=== PATIENT | female | born 1940 | race Caucasian/White ===

== ENCOUNTER 2016-08-08 10:04 | Inpatient (IN) | payer BC ==
[2016-08-08 10:12] VITALS: BMI 31.8
[2016-08-08] MEDS ORDERED: dilTIAZem HCL 50 MG/10 ML - 10 ML VIAL IVPUSH ONE (10:33)
--- NOTE | 2016-08-08 10:44 | PDOC ---
History of Present Illness - History of Present Illness Initial Comments: 08/08/16 10:47 - History of Present Illness Initial Comments: 08/08/16 10:44 Patient is 75 year old female with a significant past medical history of hypertension, hypothyroidism and hyperlipidemia who presents to the Emergency Department sent by PCP for new onset afib. Patient states that she was at her PMDs office for a routine visit she was found to have an abnormal ECG with irregular heartbeat. Patient reports dyspnea on exertion walking up 13 stairs at her home and increased generalized weakness. She denies any palpitations or chest pain. She denies any leg swelling. Patient states that she saw Dr. Nicole 4 months ago and had normal cardiac workup. PCP - Dr. Rivas Cardiology - Dr. Nicole <Esme Perez - Last Filed: 08/08/16 10:44> <Luz Elena Alvarez - Last Filed: 08/08/16 12:37> <Esme Perez - Last Filed: 08/08/16 15:05> - General Chief Complaint: Irregular Heart Beat Stated Complaint: PCP SENT Time Seen by Provider: 08/08/16 10:17 Past History - Past Medical History Cardiac Disorders: Yes (HEART MURMUR) HTN: Yes Hypercholesterolemia: Yes Thyroid Disease: Yes - Psycho/Social/Smoking Cessation Hx Anxiety: No Suicidal Ideation: No Smoking History: Never smoked Have you smoked in the past 12 months: No Information on smoking cessation initiated: No Hx Alcohol Use: No Drug/Substance Use Hx: No Substance Use Type: Alcohol <Luz Elena Alvarez - Last Filed: 08/08/16 12:37> <Esme Perez - Last Filed: 08/08/16 15:05> - Past Medical History Allergies/Adverse Reactions: Allergies Allergy/AdvReac Type Severity Reaction Status Date / Time No Known Allergies Allergy Verified 08/08/16 10:09 Home Medications: Ambulatory Orders Levothyroxine [Synthroid -] 50 mcg PO DAILY 03/28/13 Losartan/Hydrochlorothiazide [Losartan-Hctz 100-12.5 mg Tab] 1 each PO DAILY Simvastatin [Zocor] 20 mg PO HS 03/28/13 Verapamil HCl [Calan Sr] 140 mg PO DAILY 03/28/13 Aspirin [Ecotrin] 81 mg PO DAILY 08/08/16 Review of Systems - Review of Systems Able to Perform ROS?: Yes Comments:: 08/08/16 10:40 12 point review of systems is as per history of present illness and otherwise negative <Luz Elena Alvarez - Last Filed: 08/08/16 12:37> *Physical Exam - Vital Signs Last Vital Signs Temp Pulse Resp BP Pulse Ox 97.6 F 128 H 20 156/96 97 08/08/16 10:09 08/08/16 10:09 08/08/16 10:08/08/16 10:08/08/16 10:09 - Physical Exam Comments: 08/08/16 10:40 Physical exam Last Vital Signs Temp Pulse Resp BP Pulse Ox 97.6 F 128 H 20 156/96 97 08/08/16 10:09 08/08/16 10:09 08/08/16 10:08/08/16 10:09 08/08/16 10:09 GENERAL: The patient is awake, alert, and fully oriented, and in no apparent distress. HEAD: Normal with no signs of trauma. EYES: sclera anicteric, conjunctiva are normal. ENT: Moist mucous membranes. NECK: Normal range of motion, supple LUNGS: Breath sounds equal, clear to auscultation bilaterally. No wheezes, and no crackles. HEART: Irregularly irregular with a rate of 120 to 130 ABDOMEN: Soft, nontender, normoactive bowel sounds. No guarding, no rebound. No masses appreciated. EXTREMITIES: Normal range of motion, no edema. No clubbing or cyanosis. No cords, erythema, or tenderness. NEUROLOGICAL: Cranial nerves II through XII grossly intact. Normal speech, normal gait. PSYCH: Normal mood, normal affect. SKIN: Warm, Dry, normal turgor, no rashes or lesions noted. <Luz Elena Alvarez - Last Filed: 08/08/16 12:37> - Vital Signs Last Vital Signs Temp Pulse Resp BP Pulse Ox 97.6 F 128 H 20 156/96 97 08/08/16 10:09 08/08/16 10:09 08/08/16 10:08/08/16 10:08/08/16 10:09 <Esme Perez - Last Filed: 08/08/16 15:05> ED Treatment Course - LABORATORY CBC & Chemistry Diagram: 08/08/16 11:00 08/08/16 11:00 - RADIOLOGY Radiology Studies Ordered: Category Date Time Status CHEST X-RAY PORTABLE* [RAD] Stat Radiology 08/08/16 10:32 Ordered <Luz Elena Alvarez - Last Filed: 08/08/16 12:37> - LABORATORY CBC & Chemistry Diagram: 08/08/16 11:00 08/08/16 11:00 <Esme Perez - Last Filed: 08/08/16 15:05> Medical Decision Making - Medical Decision Making 08/08/16 10:42 EKG Atrial fibrillation with a rapid ventricular response rate-123 Left axis deviation -41 QRS duration 106 QTC [address]-T waves that may be rate related When compared to the EKG of 12/25/07 Sinus rhythm was present on the prior EKG An EKG from Dr. Rivas's office from this morning She has atrial fibrillation with a ventricular response rate of 100 75-year-old female with atrial fibrillation of uncertain etiology, as she has been essentially asymptomatic with this She went to Dr. Rivas's office today for a regular physical and was found to be in atrial fibrillation She's had no chest pain or palpitations She does state that she has had some dyspnea on exertion going up the steps, but denies any other symptomatology It is unclear how long she's been in atrial fibrillation She was last seen by her manager behavioral for months ago, and at that time she was in sinus rhythm 08/08/16 12:13 EKG #2 Atrial fibrillation with a rapid ventricular response rate now of [address]-T wave abnormalities, similar to the prior EKG Impression his heart rate is now 96 on the diltiazem drip 08/08/16 12:27 Chest x-ray Right basilar platelike atelectasis, otherwise negative No evidence of pneumonia, CHF, pleural effusion, or pneumothorax Laboratory Results - last 24 hr 08/08/16 08/08/16 11:00 11:00 WBC 11.3 H D RBC 5.02 Hgb 13.6 Hct 41.7 MCV 83.1 MCHC 32.5 RDW 15.8 H Plt Count 267 MPV 8.2 Sodium 141 Potassium 3.9 Chloride 103 Carbon Dioxide 27 Anion Gap 11 BUN 10 Creatinine 0.7 Creat Clearance w eGFR > 60 Random Glucose 116 H D Calcium 8.5 Magnesium 1.7 L Total Bilirubin 0.5 D AST 20 ALT 20 Alkaline Phosphatase 103 Creatine Kinase 75 Troponin I < 0.02 B-Natriuretic Peptide 1587.44 H Total Protein 6.8 Albumin 3.5 Patient comfortable on diltiazem drip-heart rate down into the 90s 08/08/16 12:37 Case and all results discussed with Dr. John-will admit Cardiology paged <Luz Elena Alvarez - Last Filed: 08/08/16 12:37> - Medical Decision Making 08/08/16 15:05 A call back was received from Dr. Nicole and case discussed. Dr. Nicole will be consult on the case. <Esme Perez - Last Filed: 08/08/16 15:05> *DC/Admit/Observation/Transfer - Discharge Dispostion Admit: Yes <Luz Elena Alvarez - Last Filed: 08/08/16 12:37> <Esme Perez - Last Filed: 08/08/16 15:05> Diagnosis at time of Disposition: Atrial fibrillation with rapid ventricular response
[2016-08-08] MEDS ORDERED: DILTIAZEM INJECTION 125 MG in DEXTROSE 5%-WATER - 100 ML IVPB SCH (10:45)
[2016-08-08] MEDS ORDERED: dilTIAZem HCL 125 MG/25 ML - 25 ML VIAL ONE (10:47)
[2016-08-08] MEDS ORDERED: dilTIAZem HCL 50 MG/10 ML - 10 ML VIAL ONE (10:48)
[2016-08-08 11:20] LABS: MCHC 32.5 g/dl (32.0-36.0); MEAN CELL VOLUME 83.1 fl (80-96); MEAN PLT VOLUME 8.2 fl (7.5-11.1); PLATELET COUNT 267 K/MM3 (134-434); RDW 15.8 % (11.6-15.6); WHITE BLOOD COUNT 11.3 K/mm3 (4.0-10.0)
[2016-08-08 11:42] LABS: ALBUMIN 3.5 g/dl (3.4-5.0); ANION GAP 11 (8-16); BILIRUBIN,TOTAL 0.5 mg/dL (0.2-1.0); CALCIUM 8.5 mg/dL (8.5-10.1); CO2 27 mmol/L (21-32); COCKROFT - GAULT 88.1195; CREATININE 0.7 mg/dL (0.55-1.02); GLUCOSE,RANDOM 116 mg/dL (74-106); MAGNESIUM 1.7 mg/dL (1.8-2.4); SGOT/AST 20 U/L (15-37); SGPT/ALT 20 U/L (12-78); TOT PROT 6.8 g/dl (6.4-8.2)
[2016-08-08 11:44] LABS: ALK PHOS 103 U/L (45-117); TROPONIN I < 0.02 ng/ml (0.00-0.05)
--- NOTE | 2016-08-08 13:07 | CON.CARD ---
Consult Consult Specialty:: Palpitations Referred by:: Red Rivas MD Reason for Consultation:: Newly diagnosed atrial fibrillation - History of Present Illness Chief Complaint: Palpitations History of Present Illness: Patient is 75 year old female with a significant past medical history of hypertension, hypothyroidism, hyperlipidemia, nonobstructive CAD referred to the Emergency Department by PCP for newly diagnosed rapid afib. Patient states that she was at her PMDs office for a routine visit she was found to be in rapid afib. Patient reports dyspnea on exertion walking up 13 stairs at her home and increased generalized weakness, but denies any palpitations, chest pain , near or true syncope, orthopnea, PND, or lower extremity edema, placed on cardizem gtt for rate-control with spontaneous cardioversion with rate-control, she reports medication compliance. PCP - Dr. Rivas Cardiology - Dr. Nicole - History Source History Provided By: Patient Limitations to Obtaining History: No Limitations - Alcohol/Substance Use Hx Alcohol Use: No - Smoking History Smoking history: Never smoked Have you smoked in the past 12 months: No Home Medications - Allergies Allergies/Adverse Reactions: Allergies Allergy/AdvReac Type Severity Reaction Status Date / Time No Known Allergies Allergy Verified 08/08/16 10:09 - Home Medications Home Medications: Ambulatory Orders Levothyroxine [Synthroid -] 50 mcg PO DAILY 03/28/13 Losartan/Hydrochlorothiazide [Losartan-Hctz 100-12.5 mg Tab] 1 each PO DAILY Simvastatin [Zocor] 20 mg PO HS 03/28/13 Verapamil HCl [Calan Sr] 140 mg PO DAILY 03/28/13 Aspirin [Ecotrin] 81 mg PO DAILY 08/08/16 Review of Systems - Review of Systems Respiratory: reports: Exercise Intolerance, SOB on Exertion Vital Signs: Vital Signs Temperature 97.6 F 08/08/16 10:09 Pulse Rate 105 H 08/08/16 11:25 Respiratory Rate 16 08/08/16 11:25 Blood Pressure 126/71 08/08/16 11:25 O2 Sat by Pulse Oximetry (%) 98 08/08/16 11:25 Constitutional: Yes: No Distress, Calm Neck: Yes: Supple Respiratory: Yes: Regular, Diminished Gastrointestinal: Yes: Normal Bowel Sounds, Soft Cardiovascular: Yes: Regular Rate and Rhythm JVD: No Carotid Bruit: No Heart Sounds: Yes: S1, S2 Murmur: Yes: Systolic Murmur, Grade 1 Edema: No - Other Data Labs, Other Data: CBC, BMP 08/08/16 11:00 08/08/16 11:00 Troponin, BNP 08/08/16 11:00 Troponin I < 0.02 B-Natriuretic Peptide 1587.44 H Troponin, BNP 08/08/16 11:00 Troponin I < 0.02 B-Natriuretic Peptide 1587.44 H Afib @ 123 LAD, LVH QTc 460 msec Ejection Fraction %: LVEF > or = 40 % Imaging - Results Chest X-ray: Report Reviewed (Rt base ATX, otherwise NAD) Problem List - Problems (1) Atrial fibrillation with rapid ventricular response Code(s): I48.91 - UNSPECIFIED ATRIAL FIBRILLATION (2) Hypertensive cardiomyopathy Code(s): I11.9 - HYPERTENSIVE HEART DISEASE WITHOUT HEART FAILURE I42.9 - CARDIOMYOPATHY, UNSPECIFIED Qualifiers: Heart failure presence: without heart failure Qualified Code(s): I11.9 - Hypertensive heart disease without heart failure (3) Hyperlipidemia Code(s): E78.5 - HYPERLIPIDEMIA, UNSPECIFIED Qualifiers: Hyperlipidemia type: pure hypercholesterolemia Qualified Code(s): E78.00 - Pure hypercholesterolemia, unspecified; E78.0 - Pure hypercholesterolemia (4) Hypothyroidism Code(s): E03.9 - HYPOTHYROIDISM, UNSPECIFIED Qualifiers: Hypothyroidism type: unspecified Qualified Code(s): E03.9 - Hypothyroidism, unspecified (5) Coronary artery disease Code(s): I25.10 - ATHSCL HEART DISEASE OF [place] CORONARY ARTERY W/O ANG PCTRS Assessment/Plan 1. Paroxysmal atrial fibrillation-> sinue rhythm [id number] 2. HTN/HCVD 3. Hyperlipidemia 4. Hypothyroidism 5. Non-obstructive CAD, angina pectoris P:1. Wean Cardizem gtt off, start sotalol 80 bid with monitor QTc x 2 days 2. Check TSH, echocardiogram if not performed recently 3. Continue Hyzaar 100/12.5 qd, Zocor 20 qhs, change ASA to Eliquis 5 bid given elevated risk score 4. Thank you for consultative opportunity
--- NOTE | 2016-08-08 13:23 | EKG ---
Test Reason : Blood Pressure : / mmHG Vent. Rate : 123 BPM Atrial Rate : 122 BPM P-R Int : 000 ms QRS Dur : 106 ms QT Int : 322 ms P-R-T Axes : 000 -41 099 degrees QTc Int : 460 ms ATRIAL FIBRILLATION WITH RAPID VENTRICULAR RESPONSE LEFT AXIS DEVIATION VOLTAGE CRITERIA FOR LEFT VENTRICULAR HYPERTROPHY NONSPECIFIC ST AND T WAVE ABNORMALITY ABNORMAL ECG WHEN COMPARED WITH ECG OF 25-DEC-2007 17:47, ATRIAL FIBRILLATION HAS REPLACED SINUS RHYTHM VENT. RATE HAS INCREASED BY 75 BPM QRS DURATION HAS INCREASED Confirmed by MARY KOHLI MD ([id number]) on 08/08/2016 1:23:41 PM Referred By: Confirmed By:MARY KOHLI MD
[2016-08-08] MEDS ORDERED: ONDANSETRON 4 MG/2 ML VIAL IVPB PRN (14:01)
[2016-08-08] MEDS ORDERED: ACETAMINOPHEN 325 MG TABLET (FP) PO PRN (14:01)
--- NOTE | 2016-08-08 14:04 | HP ---
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 Sister Caroline says she feels fine and was without complaint. She says that sometimes she gets slight shortness of breath on exertion but it is minimal. She presented to Dr Rivas and was found to have atrial fibrillation. She is asymptomatic from this. She denies fevers, chills, lightheadedness, dizziness, passing out, chest pain, palpitations, fluttering, nausea, vomiting, diarrhea, constipation, difficulty urinating, swelling, or any other concern. History Source: Patient Limitations to Obtaining History: No Limitations - Past Medical History Cardiovascular: Yes: HTN, Hyperlipdemia Endocrine: Yes: Hypothyroidism - Past Surgical History Past Surgical History: Yes: None - Smoking History Smoking history: Never smoked Have you smoked in the past 12 months: No - Alcohol/Substance Use Hx Alcohol Use: Yes History of Substance Use: reports: None - Social History Usual Living Arrangement: Yes: Alone ADL: Independent History of Recent Travel: No Home Medications - Allergies Allergies/Adverse Reactions: Allergies Allergy/AdvReac Type Severity Reaction Status Date / Time No Known Allergies Allergy Verified 08/08/16 10:09 - Home Medications Home Medications: Ambulatory Orders Levothyroxine [Synthroid -] 50 mcg PO DAILY 03/28/13 Losartan/Hydrochlorothiazide [Losartan-Hctz 100-12.5 mg Tab] 1 each PO DAILY Simvastatin [Zocor] 20 mg PO HS 03/28/13 Verapamil HCl [Calan Sr] 140 mg PO DAILY 03/28/13 Aspirin [Ecotrin] 81 mg PO DAILY 08/08/16 Family Disease History - Family Disease History Family Disease History: Diabetes: Mother, Heart Disease: Father, Brother Review of Systems Findings/Remarks: Full review of systems obtained, as per HPI and otherwise negative Physical Examination Vital Signs: Vital Signs Temperature 97.6 F 08/08/16 10:09 Pulse Rate 82 08/08/16 13:16 Respiratory Rate 16 08/08/16 13:16 Blood Pressure 93/63 08/08/16 13:16 O2 Sat by Pulse Oximetry (%) 96 08/08/16 13:16 Constitutional: Yes: Well Nourished, No Distress, Calm Eyes: Yes: Conjunctiva Clear, EOM Intact, PERRL HENT: Yes: Atraumatic, Normocephalic Neck: Yes: Supple, Trachea Midline Cardiovascular: Yes: Pulse Irregular, Murmur. No: Tachycardia, Gallop, Rub Respiratory: Yes: Regular, CTA Bilaterally. No: Rales, Rhonchi, Wheezes Gastrointestinal: Yes: Normal Bowel Sounds, Soft. No: Distention, Tenderness Extremities: Yes: WNL Edema: No Labs: Laboratory Results - last 24 hr 08/08/16 08/08/16 11:00 11:00 WBC 11.3 H D RBC 5.02 Hgb 13.6 Hct 41.7 MCV 83.1 MCHC 32.5 RDW 15.8 H Plt Count 267 MPV 8.2 Sodium 141 Potassium 3.9 Chloride 103 Carbon Dioxide 27 Anion Gap 11 BUN 10 Creatinine 0.7 Creat Clearance w eGFR > 60 Random Glucose 116 H D Calcium 8.5 Magnesium 1.7 L Total Bilirubin 0.5 D AST 20 ALT 20 Alkaline Phosphatase 103 Creatine Kinase 75 Troponin I < 0.02 B-Natriuretic Peptide 1587.44 H Total Protein 6.8 Albumin 3.5 Imaging - Results Chest X-ray: Report Reviewed, Image Reviewed EKG: Image Reviewed Problem List - Problems (1) Atrial fibrillation with rapid ventricular response Assessment/Plan: -new onset -admit to telemetry -continue diltiazem gtt -start on eliquis -cardiology consulted -check TFTs Code(s): I48.91 - UNSPECIFIED ATRIAL FIBRILLATION (2) Hyperlipidemia Assessment/Plan: -continue statin Code(s): E78.5 - HYPERLIPIDEMIA, UNSPECIFIED Qualifiers: Hyperlipidemia type: pure hypercholesterolemia Qualified Code(s): E78.00 - Pure hypercholesterolemia, unspecified; E78.0 - Pure hypercholesterolemia (3) Hypothyroidism Assessment/Plan: -continue synthroid currently -check TFTs Code(s): E03.9 - HYPOTHYROIDISM, UNSPECIFIED Qualifiers: Hypothyroidism type: unspecified Qualified Code(s): E03.9 - Hypothyroidism, unspecified (4) HTN (hypertension) Assessment/Plan: -on diltiazem gtt, will hold verapamil -continue losartan/HCT Code(s): I10 - ESSENTIAL (PRIMARY) HYPERTENSION
[2016-08-08] MEDS: SOTALOL HCL 80 MG TABLET (FP) PO SCH (16:00)
[2016-08-08] MEDS ORDERED: MAGNESIUM SULF 50% (8.12 MEQ/2 ML-1 GM VIAL) IVPB ONE (16:39)
[2016-08-08 18:52] LABS: FREE T4 1.16 ng/dl (0.76-1.46); THYROID STIMULATING HORMONE 0.95 uIU/ml (0.358-3.74)
[2016-08-08] MEDS: ATORVASTATIN CA 10 MG TABLET (FP) PO SCH (21:12)
[2016-08-08] MEDS: APIXABAN 5 MG TABLET PO SCH (21:12)
[2016-08-09] MEDS: SOTALOL HCL 80 MG TABLET (FP) PO SCH ×3 (01:14→21:14)
[2016-08-09] MEDS: LEVOTHYROXINE NA 50 MCG TABLET (FP) PO SCH (06:34)
[2016-08-09 08:49] LABS: MCH 27.4 pg (25.7-33.7); MCHC 32.8 g/dl (32.0-36.0); MEAN CELL VOLUME 83.5 fl (80-96); PLATELET COUNT 275 K/MM3 (134-434); RDW 16.6 % (11.6-15.6); WHITE BLOOD COUNT 8.5 K/mm3 (4.0-10.0)
[2016-08-09 09:20] LABS: ALBUMIN 3.4 g/dl (3.4-5.0); ALK PHOS 96 U/L (45-117); ANION GAP 8 (8-16); BILIRUBIN,TOTAL 0.6 mg/dL (0.2-1.0); CALCIUM 8.3 mg/dL (8.5-10.1); CO2 30 mmol/L (21-32); COCKROFT - GAULT 77.1035; CREATININE 0.8 mg/dL (0.55-1.02); GLUCOSE,RANDOM 103 mg/dL (74-106); MAGNESIUM 2.2 mg/dL (1.8-2.4); PHOSPHOROUS 2.7 mg/dL (2.5-4.9); SGOT/AST 14 U/L (15-37); SGPT/ALT 21 U/L (12-78); TOT PROT 6.6 g/dl (6.4-8.2)
--- NOTE | 2016-08-09 09:57 | PN ---
Progress Note (short form) - Note Progress Note: Dr. John to document today.
[2016-08-09] MEDS ORDERED: PATIENT'S OWN MEDICATION (NON-FORMULARY) (Losartan/Hydrochlorothiazide [Losartan-Hctz 100- PO SCH (10:00)
[2016-08-09] MEDS: APIXABAN 5 MG TABLET PO SCH ×2 (10:13→21:14)
[2016-08-09] MEDS: HYDROCHLOROTHIAZIDE 12.5 MG CAPSULE (FP) PO SCH (10:13)
[2016-08-09] MEDS: LOSARTAN POTASSIUM 50 MG TABLET (FP) PO SCH (10:13)
--- NOTE | 2016-08-09 11:15 | EKG ---
Test Reason : Blood Pressure : / mmHG Vent. Rate : 062 BPM Atrial Rate : 062 BPM P-R Int : 178 ms QRS Dur : 112 ms QT Int : 478 ms P-R-T Axes : 047 -34 109 degrees QTc Int : 485 ms NORMAL SINUS RHYTHM LEFT AXIS DEVIATION LEFT VENTRICULAR HYPERTROPHY WITH REPOLARIZATION ABNORMALITY CANNOT RULE OUT SEPTAL INFARCT , AGE UNDETERMINED ABNORMAL ECG WHEN COMPARED WITH ECG OF 08-AUG-2016 11:24, SINUS RHYTHM HAS REPLACED ATRIAL FIBRILLATION VENT. RATE HAS DECREASED BY 45 BPM Confirmed by ALEXANDRIA ANTUNEZ MD ([id number]) on 08/09/2016 11:14:53 AM Referred By: JON ROLON Confirmed By:ALEXANDRIA ANTUNEZ MD
--- NOTE | 2016-08-09 13:38 | PN ---
Progress Note, Physician History of Present Illness: Dyspnea on exertion improved, denies palpitations. Tele shows maintenance of SR without PAF episodes. - Current Medication List Current Medications: Active Medications Acetaminophen (Tylenol -) 650 mg PO Q4H PRN PRN Reason: FEVER OR PAIN Apixaban (Eliquis -) 5 mg PO BID [facility] Last Admin: 08/09/16 10:13 Dose: 5 mg Atorvastatin Calcium (Lipitor -) 10 mg PO HS [facility] Last Admin: 08/08/16 21:12 Dose: 10 mg Hydrochlorothiazide (Hctz -) 12.5 mg PO DAILY [facility] Last Admin: 08/09/16 10:13 Dose: 12.5 mg Levothyroxine Sodium (Synthroid -) 50 mcg PO DAILY@0700 [facility] Last Admin: 08/09/16 06:34 Dose: 50 mcg Losartan Potassium (Cozaar -) 100 mg PO DAILY [facility] Last Admin: 08/09/16 10:13 Dose: 100 mg Ondansetron HCl (Zofran Injection) 4 mg IVPB Q6H PRN PRN Reason: NAUSEA Sotalol HCl (Betapace -) 80 mg PO BID [facility] Last Admin: 08/09/16 10:13 Dose: 80 mg - Objective Vital Signs: Vital Signs Temperature 98.3 F 08/09/16 10:00 Pulse Rate 61 08/09/16 10:00 Respiratory Rate 20 08/09/16 10:00 Blood Pressure 133/55 08/09/16 10:00 O2 Sat by Pulse Oximetry (%) 96 08/09/16 09:00 Constitutional: Yes: No Distress, Calm Neck: Yes: Supple Cardiovascular: Yes: Regular Rate and Rhythm Respiratory: Yes: Regular, CTA Bilaterally Gastrointestinal: Yes: Normal Bowel Sounds, Soft Edema: No Labs: CBC, BMP 08/09/16 08:40 08/09/16 08:40 - ....Imaging EKG: Report Reviewed (NSR @ 62 LVH, LAD QTc 485 msec) Problem List - Problems (1) Atrial fibrillation with rapid ventricular response Code(s): I48.91 - UNSPECIFIED ATRIAL FIBRILLATION (2) Hypertensive cardiomyopathy Code(s): I11.9 - HYPERTENSIVE HEART DISEASE WITHOUT HEART FAILURE I42.9 - CARDIOMYOPATHY, UNSPECIFIED Qualifiers: Heart failure presence: without heart failure Qualified Code(s): I11.9 - Hypertensive heart disease without heart failure (3) Hyperlipidemia Code(s): E78.5 - HYPERLIPIDEMIA, UNSPECIFIED Qualifiers: Hyperlipidemia type: pure hypercholesterolemia Qualified Code(s): E78.00 - Pure hypercholesterolemia, unspecified; E78.0 - Pure hypercholesterolemia (4) Hypothyroidism Code(s): E03.9 - HYPOTHYROIDISM, UNSPECIFIED Qualifiers: Hypothyroidism type: unspecified Qualified Code(s): E03.9 - Hypothyroidism, unspecified (5) Coronary artery disease Code(s): I25.10 - ATHSCL HEART DISEASE OF [place] CORONARY ARTERY W/O ANG PCTRS Assessment/Plan 08/08/2016 Normal biventricular size and fxn, tr AR 1. Paroxysmal atrial fibrillation-> sinus rhythm [id number] 2. HTN/HCVD 3. Hyperlipidemia 4. Hypothyroidism 5. Non-obstructive CAD, angina pectoris P:1. Continue sotalol 80 bid with monitor QTc x 1 more day 2. Continue Hyzaar 100/12.5 qd, Lipitor 10 qhs, and Eliquis 5 bid given elevated risk score 3. D/c planning in AM
--- NOTE | 2016-08-09 14:52 | PN ---
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 No cp, sob, n/v. - Current Medication List Current Medications: Active Medications Acetaminophen (Tylenol -) 650 mg PO Q4H PRN PRN Reason: FEVER OR PAIN Apixaban (Eliquis -) 5 mg PO BID [facility] Last Admin: 08/09/16 10:13 Dose: 5 mg Atorvastatin Calcium (Lipitor -) 10 mg PO HS [facility] Last Admin: 08/08/16 21:12 Dose: 10 mg Hydrochlorothiazide (Hctz -) 12.5 mg PO DAILY [facility] Last Admin: 08/09/16 10:13 Dose: 12.5 mg Levothyroxine Sodium (Synthroid -) 50 mcg PO DAILY@0700 [facility] Last Admin: 08/09/16 06:34 Dose: 50 mcg Losartan Potassium (Cozaar -) 100 mg PO DAILY [facility] Last Admin: 08/09/16 10:13 Dose: 100 mg Ondansetron HCl (Zofran Injection) 4 mg IVPB Q6H PRN PRN Reason: NAUSEA Sotalol HCl (Betapace -) 80 mg PO BID [facility] Last Admin: 08/09/16 10:13 Dose: 80 mg - Objective Vital Signs: Vital Signs Temperature 98.2 F 08/09/16 14:00 Pulse Rate 57 L 08/09/16 14:00 Respiratory Rate 20 08/09/16 14:00 Blood Pressure 140/64 08/09/16 14:00 O2 Sat by Pulse Oximetry (%) 96 08/09/16 09:00 Constitutional: Yes: Well Nourished, No Distress, Calm Cardiovascular: Yes: Regular Rate and Rhythm. No: Gallop, Murmur, Rub Respiratory: Yes: Regular, CTA Bilaterally. No: Rales, Rhonchi, Wheezes Gastrointestinal: Yes: Normal Bowel Sounds, Soft. No: Distention, Tenderness Extremities: Yes: WNL Edema: No Labs: CBC, BMP 08/09/16 08:40 08/09/16 08:40 Problem List - Problems (1) Atrial fibrillation with rapid ventricular response Code(s): I48.91 - UNSPECIFIED ATRIAL FIBRILLATION (2) Hyperlipidemia Code(s): E78.5 - HYPERLIPIDEMIA, UNSPECIFIED Qualifiers: Hyperlipidemia type: pure hypercholesterolemia Qualified Code(s): E78.00 - Pure hypercholesterolemia, unspecified; E78.0 - Pure hypercholesterolemia (3) Hypothyroidism Code(s): E03.9 - HYPOTHYROIDISM, UNSPECIFIED Qualifiers: Hypothyroidism type: unspecified Qualified Code(s): E03.9 - Hypothyroidism, unspecified (4) HTN (hypertension) Code(s): I10 - ESSENTIAL (PRIMARY) HYPERTENSION Assessment/Plan (1) Atrial fibrillation with rapid ventricular response Assessment/Plan: -appreciate cardiology assistance -rhythm controlled -now in NSR -continue eliquis -possible discharge tomorrow pending QTC Code(s): I48.91 - UNSPECIFIED ATRIAL FIBRILLATION (2) Hyperlipidemia Assessment/Plan: -continue statin Code(s): E78.5 - HYPERLIPIDEMIA, UNSPECIFIED Qualifiers: Hyperlipidemia type: pure hypercholesterolemia Qualified Code(s): E78.00 - Pure hypercholesterolemia, unspecified; E78.0 - Pure hypercholesterolemia (3) Hypothyroidism Assessment/Plan: -well controlled Code(s): E03.9 - HYPOTHYROIDISM, UNSPECIFIED Qualifiers: Hypothyroidism type: unspecified Qualified Code(s): E03.9 - Hypothyroidism, unspecified (4) HTN (hypertension) Assessment/Plan: -continue losartan/HCT Code(s): I10 - ESSENTIAL (PRIMARY) HYPERTENSION
[2016-08-09] MEDS: ATORVASTATIN CA 10 MG TABLET (FP) PO SCH (21:13)
[2016-08-10] MEDS: LEVOTHYROXINE NA 50 MCG TABLET (FP) PO SCH (06:38)
[2016-08-10] MEDS: HYDROCHLOROTHIAZIDE 12.5 MG CAPSULE (FP) PO SCH (09:47)
[2016-08-10] MEDS: APIXABAN 5 MG TABLET PO SCH (09:47)
[2016-08-10] MEDS: LOSARTAN POTASSIUM 50 MG TABLET (FP) PO SCH (09:48)
[2016-08-10] MEDS: SOTALOL HCL 80 MG TABLET (FP) PO SCH (09:48)
--- NOTE | 2016-08-10 10:49 | PN ---
Progress Note, Physician Chief Complaint: Not in distress History of Present Illness: Patient was seen and examined. Awake and alert. Chart was reviewed Denies chest pain, SOB or palpitations - Current Medication List Current Medications: Active Medications Acetaminophen (Tylenol -) 650 mg PO Q4H PRN PRN Reason: FEVER OR PAIN Apixaban (Eliquis -) 5 mg PO BID [facility] Last Admin: 08/10/16 09:47 Dose: 5 mg Atorvastatin Calcium (Lipitor -) 10 mg PO HS [facility] Last Admin: 08/09/16 21:13 Dose: 10 mg Hydrochlorothiazide (Hctz -) 12.5 mg PO DAILY [facility] Last Admin: 08/10/16 09:47 Dose: 12.5 mg Levothyroxine Sodium (Synthroid -) 50 mcg PO DAILY@0700 [facility] Last Admin: 08/10/16 06:38 Dose: 50 mcg Losartan Potassium (Cozaar -) 100 mg PO DAILY [facility] Last Admin: 08/10/16 09:48 Dose: 100 mg Ondansetron HCl (Zofran Injection) 4 mg IVPB Q6H PRN PRN Reason: NAUSEA Sotalol HCl (Betapace -) 80 mg PO BID [facility] Last Admin: 08/10/16 09:48 Dose: 80 mg - Objective Vital Signs: Vital Signs Temperature 97.9 F 08/10/16 06:00 Pulse Rate 56 L 08/10/16 06:00 Respiratory Rate 18 08/10/16 06:00 Blood Pressure 159/71 08/10/16 06:00 O2 Sat by Pulse Oximetry (%) 97 08/09/16 20:15 Neck: Yes: Supple Cardiovascular: Yes: Regular Rate and Rhythm, S1, S2 Respiratory: Yes: CTA Bilaterally Gastrointestinal: Yes: Normal Bowel Sounds, Soft. No: Tenderness Edema: No Labs: CBC, BMP 08/09/16 08:40 08/09/16 08:40 Problem List - Problems (1) Atrial fibrillation with rapid ventricular response Code(s): I48.91 - UNSPECIFIED ATRIAL FIBRILLATION (2) Coronary artery disease Code(s): I25.10 - ATHSCL HEART DISEASE OF [place] CORONARY ARTERY W/O ANG PCTRS Qualifiers: Coronary Disease-Associated Artery/Lesion type: [place] artery [place] vs. transplanted heart: [place] heart Associated angina: without angina Qualified Code(s): I25.10 - Atherosclerotic heart disease of [place] coronary artery without angina pectoris (3) HTN (hypertension) Code(s): I10 - ESSENTIAL (PRIMARY) HYPERTENSION Qualifiers: Hypertension type: essential hypertension Qualified Code(s): I10 - Essential (primary) hypertension (4) Hyperlipidemia Code(s): E78.5 - HYPERLIPIDEMIA, UNSPECIFIED Qualifiers: Hyperlipidemia type: pure hypercholesterolemia Qualified Code(s): E78.00 - Pure hypercholesterolemia, unspecified; E78.0 - Pure hypercholesterolemia (5) Hypothyroidism Code(s): E03.9 - HYPOTHYROIDISM, UNSPECIFIED Qualifiers: Hypothyroidism type: unspecified Qualified Code(s): E03.9 - Hypothyroidism, unspecified Assessment/Plan 1. Paroxysmal atrial fibrillation - sinus rhythm [id number] 2. HTN/HCVD 3. Hyperlipidemia 4. Hypothyroidism 5. Non-obstructive CAD, angina pectoris PLAN: 1. Continue Sotalol 80 mg bid 2. Continue Hyzaar 100/12.5 mg qd, Lipitor 10 mg qhs and Eliquis 5 mg bid given elevated risk score 3. Discharge planning today Follow up with Dr. Albarran as outpatient Alex River MD
--- NOTE | 2016-08-10 10:52 | DS ---
Physical Examination Vital Signs: Vital Signs Temperature 97.9 F 08/10/16 06:00 Pulse Rate 56 L 08/10/16 06:00 Respiratory Rate 18 08/10/16 06:00 Blood Pressure 159/71 08/10/16 06:00 O2 Sat by Pulse Oximetry (%) 97 08/09/16 20:15 Constitutional: Yes: Calm Cardiovascular: Yes: Regular Rate and Rhythm Respiratory: Yes: Regular Gastrointestinal: Yes: Soft Edema: No Neurological: Yes: Alert, Oriented Labs: CBC, BMP 08/09/16 08:40 08/09/16 08:40 Discharge Summary Reason For Visit: ATRIAL FIBRILLATION W RAPID VENTRICULAR RESPONSE Current Active Problems Atrial fibrillation with rapid ventricular response (Acute) Coronary artery disease (Acute) HTN (hypertension) (Acute) Hyperlipidemia (Acute) Hypertensive cardiomyopathy (Acute) Hypothyroidism (Acute) Procedures: Principal: IV cardizem; Anticoagulation. Echocardiogram Other Procedures: EKGs and cardiology consultation and Cardiac monitoring Hospital Course: Back in NSR On oral RX. To Discharge Condition: Improved - Instructions Diet, Activity, Other Instructions: No added salt Followup with Dr. Rivas within 2 weeks and call Cardiology for followup appt. No decongestants or Afrin nasal spray Coffee decaf You should rest over this weekend but you can go for a short walk. 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 Referrals: Red Rivas MD [Primary Care Provider] - Geo Albarran MD [Staff Physician] - Disposition: HOME - Home Medications Comprehensive Discharge Medication List: Ambulatory Orders Levothyroxine [Synthroid -] 50 mcg PO DAILY 03/28/13 Losartan/Hydrochlorothiazide [Losartan-Hctz 100-12.5 mg Tab] 1 each PO DAILY Simvastatin [Zocor -] 20 mg PO HS 03/28/13 Acetaminophen [Tylenol .Regular Strength -] 650 mg PO Q4H PRN #0 tablet Apixaban [Eliquis -] 5 mg PO BID #60 tablet 08/10/16 Sotalol HCl [Betapace -] 80 mg PO BID #60 tablet 08/10/16
[2016-08-10 11:14] VITALS: BP 132/69; PULSE 58; TEMP 98.2
--- NOTE | 2016-08-10 11:17 | EKG ---
Test Reason : Blood Pressure : / mmHG Vent. Rate : 055 BPM Atrial Rate : 055 BPM P-R Int : 176 ms QRS Dur : 110 ms QT Int : 458 ms P-R-T Axes : 046 -32 107 degrees QTc Int : 438 ms SINUS BRADYCARDIA LEFT AXIS DEVIATION LEFT VENTRICULAR HYPERTROPHY WITH REPOLARIZATION ABNORMALITY ABNORMAL ECG WHEN COMPARED WITH ECG OF 09-AUG-2016 08:53, MINIMAL CRITERIA FOR SEPTAL INFARCT ARE NO LONGER PRESENT Confirmed by SEUN DORADO, MARY ([id number]) on 08/10/2016 11:17:02 AM Referred By: Ritchie STEWART Confirmed By:MARY KOHLI MD
--- NOTE | 2016-08-10 11:24 | EKG ---
Test Reason : Blood Pressure : / mmHG Vent. Rate : 107 BPM Atrial Rate : 129 BPM P-R Int : 000 ms QRS Dur : 108 ms QT Int : 344 ms P-R-T Axes : 000 -40 095 degrees QTc Int : 459 ms ATRIAL FIBRILLATION WITH RAPID VENTRICULAR RESPONSE WITH PREMATURE VENTRICULAR OR ABERRANTLY CONDUCTED COMPLEXES LEFT AXIS DEVIATION VOLTAGE CRITERIA FOR LEFT VENTRICULAR HYPERTROPHY NONSPECIFIC ST AND T WAVE ABNORMALITY ABNORMAL ECG WHEN COMPARED WITH ECG OF 08-AUG-2016 10:19, NO SIGNIFICANT CHANGE WAS FOUND Confirmed by MARY KOHLI MD ([id number]) on 08/10/2016 11:24:14 AM Referred By: Confirmed By:MARY KOHLI MD
== END 2016-08-10 11:32 | disposition home or self-care (01) | DRG 309 ==
LOC: SUPCPDRO 10:04 → JER 10:04 → JERBED 12:38 → J4W 17:07
PROVIDERS: ADMIT Internal Medicine; ATTEND Internal Medicine
DX: I48.0 Paroxysmal atrial fibrillation (principal); J98.11 Atelectasis; E78.00 Pure hypercholesterolemia, unspecified; E03.9 Hypothyroidism, unspecified; I25.119 Atherosclerotic heart disease of native coronary artery with unspecified angina pectoris; I11.9 Hypertensive heart disease without heart failure
CPT/HCPCS: 36415; 71010-TC; 80053; 82550; 83735; 83880; 84100; 84439; 84443; 84484; 85027; 93005; 93010; 93306-TC; 99284-25

== ENCOUNTER 2018-04-13 06:58 | Day surgery (SDC) | payer BC ==
[2018-04-10 14:47] VITALS: BMI 29.9
[2018-04-13 08:47] VITALS: TEMP 98
[2018-04-13 09:42] VITALS: BP 132/45; PULSE 53
--- NOTE | 2018-04-15 10:29 | PATH ---
Surgical Pathology Report Patient Name: MARICARMEN MARINELLI [facility]. Rec. #: [id number] /Age/Gender: 1940 (Age: 77) / F Account: [id number] Location: ASU-ENDOSCOPY Taken: 04/13/2018 Received: 04/13/2018 Reported: 04/15/2018 Physicians: Gregory Mandujano M.D. Specimen(s) Received POLYP SIGMOID Clinical History Rectal bleeding, history of colon polyp, family history of colon cancer Postoperative diagnosis: Diverticulosis, polyp Final Diagnosis SIGMOID COLON, POLYP, POLYPECTOMY: HYPERPLASTIC POLYP. Electronically Signed Angelita Doss M.D. Gross Description Received in formalin, labeled "sigmoid polyp" is a tom, irregular portion of soft tissue measuring 0.6 cm. in greatest dimension. The specimen is submitted in toto in one cassette. 04/13/201804/13/2018
== END 2018-04-13 09:42 | disposition home or self-care (01) ==
LOC: JASU-ENDO 06:58
PROVIDERS: ATTEND Internal Medicine Gastroenterology
PROC: 0DBN8ZX Excision of Sigmoid Colon, Via Natural or Artificial Opening Endoscopic, Diagnostic (ICD-10-PCS; principal; 2018-04-13 08:00)
DX: Z86.010 Personal history of colon polyps (principal); K63.5 Polyp of colon; K57.30 Diverticulosis of large intestine without perforation or abscess without bleeding; K64.8 Other hemorrhoids; I10 Essential (primary) hypertension; E78.5 Hyperlipidemia, unspecified; E03.9 Hypothyroidism, unspecified; I48.91 Unspecified atrial fibrillation; I34.1 Nonrheumatic mitral (valve) prolapse; Z98.61 Coronary angioplasty status
CPT/HCPCS: 88305-TC

== ENCOUNTER 2018-04-14 09:24 | Emergency (ER) | payer BC ==
[2018-04-14 09:34] VITALS: BP 147/53; PULSE 58; TEMP 97.9; BMI 29.2
--- NOTE | 2018-04-14 09:47 | PDOC ---
History of Present Illness - General Chief Complaint: Injury Stated Complaint: FALL Time Seen by Provider: 04/14/18 09:39 History Source: Patient Exam Limitations: No Limitations - History of Present Illness Initial Comments: 04/14/18 09:41 Tripped and fell yesterday onto outstretched hand, injuring her left wrist. States used some ice. Woke up this morning with a distal swollen and immobile therefore came for evaluation. Denies numbness or tingling to fingers, no other injury. Occurred: reports: yesterday Severity: reports: mild, moderate Pain Location: reports: upper extremity (left wrist) Method of Injury: Yes: fall (onto outstretched hand ) Modifying Factors: improves with: cold therapy Loss of Consciousness: no loss of consciousness Associated Symptoms (Fall): denies symptoms Past History - Travel Traveled outside of the country in the last 30 days: No Close contact w/someone who was outside of country & ill: No - Past Medical History Allergies/Adverse Reactions: Allergies Allergy/AdvReac Type Severity Reaction Status Date / Time No Known Allergies Allergy Verified 04/14/18 09:31 Home Medications: Ambulatory Orders Levothyroxine [Synthroid -] 50 mcg PO DAILY 03/28/13 Losartan/Hydrochlorothiazide [Losartan-Hctz 100-12.5 mg Tab] 1 each PO DAILY Simvastatin [Zocor -] 20 mg PO HS 03/28/13 Acetaminophen [Tylenol .Regular Strength -] 650 mg PO Q4H PRN #0 tablet Sotalol HCl [Betapace -] 80 mg PO BID #60 tablet 08/10/16 Nitroglycerin Sublingual [Nitrostat -] 0.4 mg SL PRN 06/21/17 Apixaban [Eliquis -] 5 mg PO BID #60 tablet 04/13/18 Cardiac Disorders: Yes (HEART MURMUR,A.FIB, MVP) COPD: No GI Disorders: Yes (DIVERTICULOSIS, COLON POLYP) HTN: Yes Hypercholesterolemia: Yes Thyroid Disease: Yes (HYPO) - Surgical History Cardiac Surgery: (CARDIAC CATH 03/20 - NO CORONARY DISESASE) - Suicide/Smoking/Psychosocial Hx Smoking History: Never smoked Have you smoked in the past 12 months: No Hx Alcohol Use: No Drug/Substance Use Hx: No Substance Use Type: None Hx Substance Use Treatment: No Review of Systems - Review of Systems Able to Perform ROS?: Yes Is the patient limited Welsh proficient: Yes Constitutional: Yes: See HPI. No: Symptoms Reported, Fever, Malaise HEENTM: No: Symptoms Reported Respiratory: No: Symptoms reported Musculoskeletal: Yes: Symptoms Reported, See HPI, Joint Pain, Joint Swelling Integumentary: Yes: Symptoms Reported, See HPI, Bruising All Other Systems: Reviewed and Negative *Physical Exam - Vital Signs Last Vital Signs Temp Pulse Resp BP Pulse Ox 97.9 F 58 L 18 147/53 L 97 04/14/18 09:33 04/14/18 09:33 04/14/18 09:33 04/14/18 09:33 04/14/18 09:33 - Physical Exam General Appearance: Yes: Nourished, Appropriately Dressed, Mild Distress HEENT: positive: [place], Normal ENT Inspection, TMs Normal, Pharynx Normal Neck: positive: Supple Musculoskeletal: positive: Normal Inspection Extremity: positive: Normal Capillary Refill, Normal Range of Motion, Tender, Swelling, Other (range of motion limited flexion and extension due to deformity and tenderness at the distal forearm. Able to wiggle fingers but has pain with grasp, neurovascular intact. Negative snuffbox tenderness). negative: Normal Inspection Integumentary: positive: Pale, Swelling (distal left radius and ulna,), Ecchymosis, Bruising Neurologic: positive: histology supervisor II-XII NML intact, Fully Oriented, Alert, Normal Mood/ Affect, Normal Response, Motor Strength 5/5 Moderate Sedation - Procedure Monitoring Vital Signs: Procedure Monitoring Vital Signs Temperature 97.9 F 04/14/18 09:33 Pulse Rate 58 L 04/14/18 09:33 Respiratory Rate 18 04/14/18 09:33 Blood Pressure 147/53 L 04/14/18 09:33 O2 Sat by Pulse Oximetry (%) 97 04/14/18 09:33 ED Treatment Course - RADIOLOGY Radiology Studies Ordered: Category Date Time Status WRIST-LEFT [RAD] Stat Radiology 04/14/18 09:39 Ordered *DC/Admit/Observation/Transfer Diagnosis at time of Disposition: Left wrist sprain Qualifiers: Encounter type: initial encounter Qualified Code(s): S63.502A - Unspecified sprain of left wrist, initial encounter - Discharge Dispostion Disposition: HOME Condition at time of disposition: Stable Decision to Admit order: No - Referrals Referrals: Red Rivas MD [Primary Care Provider] - Ibrahima Kirk DO [Staff Physician] - - Patient Instructions Printed Discharge Instructions: DI for Wrist Sprain Additional Instructions: Rest, ice to area on and off for 15 minutes 4-6 times a day Avoid heavy lifting or exercise until pain and swelling is resolved or until further directed Keep area highly elevated to reduce swelling Use splints/John wrap as directed Followup with orthopedist in one to 2 days if not improving, if significantly improved may wait one week for followup with orthopedist May use ibuprofen 2-200 mg tablets every 6 hours as needed for pain - Post Discharge Activity
== END 2018-04-14 10:01 | disposition home or self-care (01) ==
LOC: JERFT 09:24
DX: S63.502A Unspecified sprain of left wrist, initial encounter (principal); W18.39XA Other fall on same level, initial encounter; Y93.89 Activity, other specified; Y92.89 Other specified places as the place of occurrence of the external cause; Y99.8 Other external cause status; I25.10 Atherosclerotic heart disease of native coronary artery without angina pectoris; Z98.61 Coronary angioplasty status; I10 Essential (primary) hypertension; E78.00 Pure hypercholesterolemia, unspecified; E03.9 Hypothyroidism, unspecified; I48.91 Unspecified atrial fibrillation; Z79.01 Long term (current) use of anticoagulants; Z87.19 Personal history of other diseases of the digestive system
CPT/HCPCS: 73110-TC-LR-FY; 99281-25